=== PATIENT | male | born 1980 | race Caucasian/White ===

== ENCOUNTER → 2017-01-27 | Outpatient (CLI) | payer OTHER ==
--- NOTE | ~2017-01-27 | PUL ---
PATIENT'S NAME: DEANNE BRISENO [facility] AGE: 36 Y [address] ROOM: [place] [address] LOCATION: [facility] ADMIT DATE: 01/27/2017 Pulmonary DISCHARGE DATE: FAMILY PHYSICIAN: Sahra Melendez MD ATTENDING PHYSICIAN: Sahra Melendez NAME OF PROCEDURE: Sleep study DATE OF PROCEDURE: 01/27/17 TECH: CECELIA Hernandez TEST #: [facility] [place]# [id number] MEDICAL HISTORY: Patient is a 36-year-old significantly overweight gentleman with a history of persistent difficulty maintaining wakefulness. He has a history of obstructive sleep apnea but has not been on CPAP. SLEEP STAGE SUMMARY: The patient was studied for 528 minutes of which he slept 460 minutes. He fell asleep in 31 minutes and slept for 87% of the night. Sleep architecture revealed a mild decline in REM sleep and a decline in slow wave sleep. RESPIRATORY SUMMARY: Oxygen saturations ranged from 69-94%. There were 70 obstructive apneas, and 94 hypopneas for an apnea/hypopnea index moderately elevated at 21 events per hour. The majority of the events occurred too late in the study to allow for initiation of CPAP. EKG SUMMARY: No dysrhythmias were noted. LIMB MOVEMENT SUMMARY: No clinically relevant periodic limb movements were noted. SUMMARY: Moderate obstructive sleep apnea. PLAN: The patient will receive results from the ordering provider. Would consider either auto-titrating CPAP at home or a facility based CPAP titration study. DOMINIQUE CAGLE MD [facility]/ PATIENT'S NAME: DEANNE BRISENO [facility] AGE: 36 Y [address] ROOM: [place] [address] LOCATION: [facility] ADMIT DATE: 01/27/2017 Pulmonary DISCHARGE DATE: FAMILY PHYSICIAN: Sahra Melendez MD ATTENDING PHYSICIAN: Sahra Melendez /[id number] dtt: 02/08/17 1303 , Dominique Cagled: 01/30/17 1458
== END | disposition disaster alternative care site (69) ==
LOC: GSLP 20:33
DX: R06.83 Snoring (principal); G47.33 Obstructive sleep apnea (adult) (pediatric)

== ENCOUNTER → 2017-01-28 | Outpatient (CLI) | payer OTHER | END | disposition disaster alternative care site (69) | LOC: GRAD 08:42 | DX: M25.511 Pain in right shoulder (principal); M75.101 Unspecified rotator cuff tear or rupture of right shoulder, not specified as traumatic; M89.511 Osteolysis, right shoulder ==